=== PATIENT | male | born 1990 | race Caucasian/White ===

== ENCOUNTER 2020-07-12 21:10 | Emergency (ER) | payer SELFPAY ==
[~2020-07-12] VITALS: Ht 180.3 cm; Wt 81.6 kg
[2020-07-13 00:36] VITALS: BP 132/83
== END 2020-07-13 01:40 | disposition home or self-care (01) ==
LOC: ER 21:15
DX: S33.5XXA Sprain of ligaments of lumbar spine, initial encounter (principal); S63.92XA Sprain of unspecified part of left wrist and hand, initial encounter; S50.812A Abrasion of left forearm, initial encounter; V49.9XXA Car occupant (driver) (passenger) injured in unspecified traffic accident, initial encounter; Y93.89 Activity, other specified; Y92.89 Other specified places as the place of occurrence of the external cause; Y99.8 Other external cause status
CPT/HCPCS: 72128; 72131; 73120